=== PATIENT | male | born 1995 | race Caucasian/White ===

== ENCOUNTER 2019-06-11 11:51 | Emergency (ER) | payer BC, OTHER ==
[~2019-06-11] VITALS: Ht 170.2 cm; Wt 75.2 kg
[~2019-06-11 11:51] MED LIST: NO HOME MEDS
[2019-06-11 11:57] VITALS: BP 141/73
== END 2019-06-11 13:15 | disposition home or self-care (01) ==
LOC: ER 11:51
DX: M25.511 Pain in right shoulder (principal)
CPT/HCPCS: 73030; 99283

== ENCOUNTER 2020-03-27 19:25 | Emergency (ER) | payer BC, OTHER ==
[~2020-03-27] VITALS: Ht 172.7 cm; Wt 77.2 kg
[2020-03-27 19:29] VITALS: BP 126/69
== END 2020-03-27 20:12 | disposition home or self-care (01) ==
LOC: ER 19:26
DX: N50.812 Left testicular pain (principal)
CPT/HCPCS: 99281